=== PATIENT | female | born 1975 | race Caucasian/White ===

== ENCOUNTER 2024-04-09 14:32 | Emergency (ER) | payer MEDICAID, OTHER ==
[~2024-04-09] VITALS: Ht 157.5 cm; Wt 54.4 kg
[2024-04-09] MEDS ORDERED: DOXY1CAP57 PO (16:19)
[2024-04-09] MEDS: TETANUS-DIPTH-ACEL PERTUSSIS 0.5ML SYR Tdap IM ONE (16:37)
[2024-04-09 16:38] VITALS: BP 120/80; PULSE 80; RESP 20; TEMP 97.9; O2SAT 98
== END 2024-04-09 16:43 | disposition home or self-care (01) ==
LOC: ER 14:35
DX: S61.251A Open bite of left index finger without damage to nail, initial encounter (principal); Z98.51 Tubal ligation status; W55.01XA Bitten by cat, initial encounter; Y93.89 Activity, other specified; Y92.89 Other specified places as the place of occurrence of the external cause; Y99.8 Other external cause status
CPT/HCPCS: 90471; 90715